=== PATIENT | female | born 1985 | race Caucasian/White ===

== ENCOUNTER 2018-11-01 09:07 | Inpatient (IN) | payer OTHER, SELFPAY ==
[2018-10-26 12:31] VITALS: BMI 35.9
[2018-11-01] VITALS (18 sets, daily range): BP systolic 121–147; BP diastolic 65–92; PULSE 85–117; RESP 10–18; TEMP 36.4–37.8; O2SAT 91–98; BMI 35.9
--- NOTE | 2018-11-01 | DI.RAD.S_ITS ---
PROCEDURE: XR CERVICAL SPINE 2V OR 3V INDICATIONS: C4-5-6-7 ACDF TECHNIQUE: 3 view(s) of the cervical spine were acquired. COMPARISON: None. FINDINGS: Bones: No fractures or dislocations to the T1 level. The lateral masses of C1 appear intact on the odontoid view. No suspicious bony lesions. Anterior discectomy and C4-C7 anterior fusion plate with anterior transverse vertebral body screws establish normal alignment, with interbody disc prosthesis present at the intervening 3 levels. Soft tissues: No prevertebral soft tissue swelling. IMPRESSION: Normal alignment established after C4-C7 anterior fusion plating and interbody disc prosthesis placement at C4-C5, C5-C6, and C6-C7. Dictated by: Durga Wagner M.D. on 11/01/2018 at 15:48 Approved by: Durga Wagner M.D. on 11/01/2018 at 15:50
[2018-11-01] MEDS: LACTATED RINGERS 1,000 ML 42 ML IV ×2 (09:44→13:54)
[2018-11-01] MEDS: ACETAMINOPHEN 325 MG TABLET 975 MG PO (09:46)
--- NOTE | 2018-11-01 10:54 | PM.PREOP ---
Pre-operative Note Interval Note History & Physical reviewed/Exam performed by Physician: Yes Changes to H&P: No
[2018-11-01] MEDS: CEFAZOLIN 2 GM/100 ML FROZ.PIGGY IV ×2 (11:16→18:37)
--- NOTE | 2018-11-01 11:48 | SUR.OPER ---
Supine, head on gel donut. Arms padded with gel pads, tucked at sides, towel roll under shoulders. Safety belt at thigh. Legs uncrossed.
--- NOTE | 2018-11-01 14:08 | P.OP_ITS ---
Operative Date/Time/Diagnoses Date of procedure: 11/01/18 Time of procedure: 12:06 Pre-op diagnosis: 1. C4-5, C5-6, C6-7 spinal stenosis. 2. C4-5, C5-6, C6-7 spondylosis with radiculopathy Post-op diagnosis: same Procedure & Clinicians Procedure: 1. C4-5 C5-6 C6-7 anterior cervical diskectomy and fusion 2. C4-5 C5-6 C6-7 anterior interbody cage placement 3. C4-5 C5-6 C6-7 anterior instrumentation with plate and screw placement in C4 -C5-C6 and C7 vertebrae 4. Utilization of microsurgical technique and operating microscope Same procedure as scheduled: Yes Indications: Patient has been having chronic neck pain and worsening cervical radiculopathy. Patient failed multiple conservative management with worsening pain weakness and numbness in her upper extremity. Patient has been having difficulty performing activity of daily living. After discussing risks benefits of treatment options, patient elected proceed with surgery. Surgeon: Jax Browning Lead Pressman [employer] Printing: Naya De Leon'Brien Click Yes if Unassisted: No Anesthesia Type: General Operative Notes Closure Type: primary Specimen(s): none sent Implants & Drains: Globus Extend plate, PEEK cages Applied: catheter Estimated Blood Loss (mL): 50 Blood products transfused: none Procedure in detail: Patient was seen in the preoperative area. Risks and benefits of the surgery was discussed with the patient. Operative consent was obtained and placed in the chart. Patient was then taken to the operative room. Prophylactic antibiotic was given less than 0.5 hr prior to skin incision. General anesthesia was administered. Patient was placed into a supine position on her radiolucent table. Bilateral shoulders were taped down to allow proper C-arm imaging. Anterior cervical area was prepped and draped in a sterile fashion. Time-out was performed at this time. Using lateral C-arm imaging, the level between C4 and C7 was identified and marked on patient's neck. A oblique incision from midline towards medial border of sternocleidomastoid muscle was made. The platysma muscle was incised in line with skin incision. Metzenbaum scissor was used to develop the plane between the medial border of sternocleidomastoid d and the strap muscles medially. The carotid sheath and its contents were identified and protected behind the hand- held retractor during the entire case. The plane between the carotid sheath and strap muscles was developed with Metzenbaum scissors. Dissection was made down to the level of the anterior cervical fascia. Longus colli muscle was incised on the anterior aspect of vertebral bodies bilaterally from C4-C7. Spinal needle was placed into the C4-5 disc space and confirmed with lateral C-arm imaging. Using microsurgical technique and operative microscope, anterior cervical diskectomy was performed at C4-5 C5-6 and C6-7 level. This was done by removing the disc material, removing the anterior and posterior osteophytes posterior longitudinal ligaments along with performing bilateral foraminotomies at all 3 levels. Patient was found to have severe central and foraminal stenosis at all 3 levels. Patient's stenosis was fully decompressed after decompression was completed. After the diskectomy was completed, 3 anterior interbody cages were obtained. The cages were packed with globus via cell bone grafting material. One cage each along with the bone grafting material was then packed into the interbody spaces from C4-C7 with one cage into each interbody level. After the cages were placed, the anterior cervical plate was stabilized to the C4-C7 vertebrae using 2 screws at each each level. Total 8 screws were placed. After confirming placement of the hardware with AP and lateral C-arm imaging, the screws were locked into the plate using the locking mechanism and torque limiting screwdriver. After the hardware was placed and confirmed with AP and lateral C-arm imaging, the wound was irrigated with sterile normal saline. The platysma muscle and the subcutaneous tissue was closed with 2-0 Vicryl. The skin was closed with 4- 0Monocryl and Steri-Strips. Patient tolerated the procedure well. Patient was transferred recovery room in stable condition. There were no complications. Complications: none Condition: stable Disposition: PACU Plan for aftercare: Admit to inpatient hospital
[2018-11-01] MEDS: HYDROMORPHONE 2 MG INJ 0.5 MG IV ×3 (14:29→15:21)
[2018-11-01] MEDS: LORazepam 2 MG/ML SYRINGE 0.25 MG IV ×2 (14:55→15:24)
--- NOTE | 2018-11-01 15:48 | SUR.PHASEI ---
Patient stable for transfer to acute care. transfered to room 218. Vital signs stable on arrival. O2 sat on Ra 93%. Dressing clean dry and intact with soft neck collar in place. 7-8/10 pressure discomfort to right neck. No complaints of nausea. tolerating ice chips. Mother in room at time of arrival. Verbal report given to Hortensia Narvaez RN.
--- NOTE | 2018-11-01 15:54 | PC.NURSE ---
Admit Pt arrived from PACU to 218, A/o x3, CMS+ answering all questions appropriately. Rates pain 7/10 with ant neck dressing CDI. Soft cervical collar in place. UPdated on POC and mother at bedside.
[2018-11-01] MEDS: hydrOXYzine pamoate 25 MG CAPSULE PO (16:25)
[2018-11-01] MEDS: HYDROCODONE/ACET 5/325 TABLET 2 TAB PO (16:50)
--- NOTE | 2018-11-01 17:30 | PT.IIE ---
Current Diagnoses Other spondylosis with myelopathy, cervical region (11/01/18) Spinal stenosis, cervical region (11/01/18) Surgery Performed Operation Date: 11/01/18 11:45 Actual Procedures p C4-5,C5-6,C6-7 ACDF w/ant instru(Not Applicable) - Jax Browning MD Surgical History (Last Updated 10/30/18 @ 16:33 by Kari Bueno, RN) History of bilateral carpal tunnel release (Acute) History of bilateral tubal ligation (Acute ~2007) History of section (Acute) History of excision of pilonidal cyst (Acute) Hx of thyroidectomy (Acute ~2015) Hx of tonsillectomy (Acute) Medical History (Last Updated 10/30/18 @ 16:46 by Kari Bueno, RN) Anxiety (Acute) Arthritis (Acute) Back pain (Acute) Bronchitis (Acute) Current every day smoker (Acute) Graves' disease (Acute) Hyperlipidemia (Acute) Hypertriglyceridemia (Acute) Insomnia (Acute) Left cervical lymphadenopathy (Acute) Migraines (Acute) Nicotine addiction (Acute) Numbness and tingling (Acute) Pneumonia (Acute ~2003) Psoriasis (Acute) RLS (restless legs syndrome) (Acute) Smokers' cough (Acute) Tachycardia (Acute) Type 2 diabetes mellitus (Acute ~2015) Physical Therapy Inpatient Evaluation/Re-Eval M1 PT/OT-IP Prior Functional Status Start: 11/01/18 17:30 Freq: NEEDED Status: Active Protocol: Document 11/01/18 17:30 EA (Rec: 11/01/18 17:42 EA [id number]) Medical Review Prior Functional Status Medical History Reviewed Yes Diet/Fluid Consistency Regular Communication Normal Mobility and Gait Indep with no assistive device Activities of Daily Living and IADL's 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 PT-IP Current Condition Start: 11/01/18 17:30 Freq: NEEDED Status: Active Protocol: Document 11/01/18 17:30 EA (Rec: 11/01/18 17:42 EA [id number]) Physical Therapy Current Condition Current Condition Evaluation Date 11/01/18 Treatment Diagnosis C4-C5, C5-C6, C6-C7 ACDF, ANT INTER CAGE PLACEMENT W/ PLATE AND SCREWS Precautions Cervical Spine Precautions Soft Collar for Comfort Soft Collar at all Times No Heavy Lifting Log Roll Weight Bearing Status Weight Bearing Status Full Weight Bearing M3 PT-IP Subjective Start: 11/01/18 17:30 Freq: NEEDED Status: Active Protocol: Document 11/01/18 17:30 EA (Rec: 11/01/18 17:42 EA [id number]) Subjective Physical Therapy Visit Type Type Initial Evaluation Visit Start Time 16:55 Visit Stop Time 17:30 Total Visit Minutes 35 Number of ENGINEERING CLERK Visits 0 Physical Therapy Visit Comments Patient Comments Patient would like to walk in the hallway. Patient Goals Indep in all transfers and mobility Therapy Pain Assessment Pain When Pain Assessed At Rest Pain Present Pain Present Pain Reported Location Bilateral Posterior Neck Intensity 5 M4 PT-IP Mobility and Gait Start: 11/01/18 17:30 Freq: NEEDED Status: Active Protocol: Document 11/01/18 17:30 EA (Rec: 11/01/18 17:42 EA [id number]) PT-Bed Mobility Assessment Rolling Type of Rolling Log Rolling Bilateral Level of Assist Standby Assistance Supine to Sit Supine to Sit Standby Assistance Sit to Supine Sit to Supine Standby Assistance Scooting Scooting to Edge of Bed Standby Assistance PT-Transfer Assessment Sit to and From Stand Sit to and from Stand Standby Assistance Equipment Transfer Assistive Device None Transfers Transfer Technique STEPPING Transfer Ability Level of Assist Standby Assistance Comments Mobility Comments PT standby assist in all transfers with no noted any signs of instability. Vitals were normal in supine to upright position. Pt understands safety and aware with all pre-cautions. Gait Assessment Gait Gait Assistance Required: Standby Assistance Distance (Feet) 40 Able to Maintain Weight Bearing Status Yes During Gait Assistive Devices Assistive Device None Gait Belt Gait Deviations General Gait Pattern Within Normal Limits Factors Limiting Gait Function Factors Limiting Gait Function Decreased Activity Tolerance Comments Gait Comments Patient ambulate with SBA using IV pole for support ~ 50 ft; no signs of instability during mobility noted. PT-Balance Assessment Sitting Balance and Reactions Static Sitting Balance Ability Normal Dynamic Sitting Balance Ability Normal Standing Balance and Reactions Static Standing Balance Ability Normal Dynamic Standing Balance Ability Normal M5 PT-IP Objective Assessments Start: 11/01/18 17:30 Freq: NEEDED Status: Active Protocol: Document 11/01/18 17:30 EA (Rec: 11/01/18 17:42 EA [id number]) Orientation Orientation/Cognition Level of Alertness Alert Orientation Name Age Birthday Date Year Day of Week Place Language Function Ability No Deficits Noted Safety Awareness Understands Safety Issues Memory Description No Deficits Noted Gross Range of Motion Upper Extremity ROM Assessment Within Functional Limits Impairments Both shoulders full shoulder ABD?flexion was no take due to pre-caution but with at least more than 75% of full ROM Lower Extremity ROM Assessment Within Functional Limits Strength Upper Extremity Strength Assessment Within Functional Limits Shoulder shoulder not tested due to pre -caution with at least 3/5 Lower Extremity Strength Assessment Within Functional Limits Coordination Assessment Gross Coordination Gross Coordination WNL Sensation Assessment Sensation Gross Sensation WNL Light Touch Intact Proprioception (Position) Intact Comments Sensation Comments No deficits noted to C4 -C7 dermatome M6 PT-IP Treatment Start: 11/01/18 17:30 Freq: NEEDED Status: Active Protocol: Document 11/01/18 17:30 EA (Rec: 11/01/18 17:42 EA [id number]) Physical Therapy Treatment Education Education Provided Precautions Weight Bearing Status Post-Op Packet Safety M7 PT-IP Assessment and Plan Start: 11/01/18 17:30 Freq: NEEDED Status: Active Protocol: Document 11/01/18 17:30 EA (Rec: 11/01/18 17:42 EA [id number]) PT Summary Assessment and Plan Potential Status of Condition at Evaluation Stable Summary Impairments Pain Bed Mobility Transfers Activity Tolerance Assessment Summary Patient exhibits decreased activity tolerance due to general body fatigue and pain. Patient has no signs of instability during mobility and transfers, however still requires assistance for safety. Patient may benefit with skilled to practice stairs prior to discharge tomorrow. Goals Bed Mobility Goal Independent Transfer Goal Independent Gait Goal Independent Gait Distance 100 ft Other Goals 1 stair with SBA Days to Meet Goals 1 Frequency of Treatment Frequency Of Treatment Once a Day Treatment Plan Physical Therapy Treatment Plan Bed Mobility Training Transfer Training Gait Training Therapeutic Exercise Post Op Education Discharge Planning Other Recommendations and Next Treatment 1 step to practice and review Focus cervical surgery pre-cautions. Recommendations To Nursing Amount of Assist Needed Standby Assistance Discharge Recommendations PT Discharge Recommendations Home with Assistance
[2018-11-01] MEDS: SODIUM CHLORIDE 0.9% 1,000 ML 100 ML IV (17:57)
[2018-11-01] MEDS: AMOXICILLIN 250 MG CAPSULE 500 MG PO ×2 (18:35→21:21)
[2018-11-01] MEDS: OXYCODONE IR 5 MG TABLET 10 MG PO (19:28)
[2018-11-01] MEDS: DOCUSATE 100 MG CAPSULE PO (19:29)
[2018-11-01] MEDS: ATORVASTATIN 20 MG TABLET PO (19:30)
[2018-11-01] MEDS: ONDANSETRON 4 MG/2 ML INJ IV (19:33)
[2018-11-01] MEDS: METFORMIN XR 500 MG TABLET PO (19:34)
[2018-11-01] MEDS: LEVOTHYROXINE 75 MCG TABLET PO (19:35)
[2018-11-01] MEDS: LEVOTHYROXINE 100 MCG TABLET PO (19:35)
[2018-11-01] MEDS: NICOTINE 14 PATCH 14 MG TOP (21:21)
[2018-11-01] MEDS: diazePAM 5 MG TABLET PO (21:26)
[2018-11-02] MEDS: OXYCODONE IR 5 MG TABLET 10 MG PO ×3 (03:15→10:46)
[2018-11-02] MEDS: CEFAZOLIN 2 GM/100 ML FROZ.PIGGY IV (03:37)
[2018-11-02 03:48] VITALS: BP 126/72; PULSE 84; RESP 16; TEMP 36.4; O2SAT 96
[2018-11-02] MEDS: diazePAM 5 MG TABLET PO (04:58)
[2018-11-02 05:48] LABS: Hematocrit 35.2 % (36-46); Hemoglobin 11.9 g/dL (12.0-16.0)
--- NOTE | 2018-11-02 07:28 | PM.DS.1 ---
History of Present Illness Date Patient Seen: 11/02/18 Time Patient Seen: 07:40 Chief complaint: cervical lumbar [id number] Narrative: Patient seen bedside s/p C4-5 C5-6 C6-7 anterior cervical diskectomy and fusion with Dr. Browning. Patient is POD #1. She is doing well, her pain is well controlled and she would like to go home today. Denies any numbness/tingling, SOB, and CP. Discharge Providers Date of admission: 11/01/18 09:07 Consults: 11/01/18 15:53 Consult to Occupational Therapy Evaluate & Treat Comment: Physician Instructions: Evaluate and treat Consult to Physical Therapy Evaluate & Treat Comment: Physician Instructions: Evaluate and Treat Discharge provider: Luba Aege PA-C Discharge Date: 11/02/18 Summary Discharge Diagnosis: 1. C4-5, C5-6, C6-7 spinal stenosis. 2. C4-5, C5-6, C6-7 spondylosis with radiculopathy Hospital Course: Patient was admitted to the hospital s/p C4-5, C6-7, C6-[address] Browning on 11/01/18. Patient tolerated the procedure well with no major complications. She was transferred to the acute care floor and placed on the standard cervical fusion pathway and protocol. She was seen by PT and recommended for discharge home. She was stable and ready for discharge on 11/02/18. Status at Discharge Cognitive/behavioral status at discharge: Alert and oriented x4. Functional status at discharge: independent ambulation Overall status at discharge: patient is progressing back to baseline Time Spent with Patient Less than 30 minutes Exam Vital Signs (past 8 hours): - 11/02/18 03:48 Temperature 97.6 F Pulse Rate 84 Respiratory Rate 16 Blood Pressure 126/72 Pulse Oximetry 96 Oxygen Delivery Method Room Air Oxygen Flow Rate 0 Narrative Exam Narrative: WDWN NAD A&Ox3. Anterior neck dressing has a small spot of old drainage, but is otherwise CDI. No hematoma, mild swelling, no erythema. No focal deficits noted, FROM of BUE. BUE pink and well perfused. Objective Labs Result Diagrams: 11/02/18 05:31 Labs: Laboratory Results - last 24 hr 11/02/18 05:31 Hgb 11.9 L Hct 35.2 L Discharge Plan Discharge Plan Patient Disposition: Home Discharge Med Rec/Prescriptions Prescriptions: New docusate sodium 100 mg Capsule 100 mg PO BID Qty: 0 RF: 0 hydroxyzine pamoate 25 mg Capsule 25 mg PO Q4HR PRN (Reason: Nausea And Vomiting) Qty: 50 RF: 1 hydrocodone-acetaminophen 10-325 mg tablet 1 tab PO Q4-6H PRN (Reason: pain) Qty: 40 RF: 0 Continue levothyroxine 175 mcg Tablet 175 mcg PO BEDTIME RF: 0 atorvastatin 20 mg Tablet 20 mg PO BEDTIME RF: 0 diphenhydramine HCl [Benadryl] 25 mg Capsule 25 mg PO BEDTIME PRN (Reason: Sleep) RF: 0 rbvunwb-wjucstmpwaeob-lhvyjgqd [Excedrin Migraine] 250-250-65 mg Tablet 2 tab PO Q6H PRN (Reason: Migraine Headache) RF: 0 cyclobenzaprine 10 mg Tablet 5 - 10 mg PO BID PRN (Reason: Muscle Spasms) RF: 0 amoxicillin 500 mg Capsule 500 mg PO TID RF: 0 calcium carbonate 500 mg calcium (1,250 mg) Tablet,Chewable 4 tab PO QID RF: 0 metformin 500 mg Tablet Extended Release 24 Hr 500 mg PO BID RF: 0 trolamine salicylate 10 % Cream 1 applic TOPICAL PRN PRN (Reason: Unlisted) RF: 0 methyl salicylate-menthol [Salonpas] 10-3 % Adhesive Patch,Medicated 1 patch Topical PRN PRN (Reason: pain) RF: 0 Discontinued hydrocodone-acetaminophen 5-325 mg Tablet 1 tab PO Q12H PRN (Reason: pain) RF: 0 naproxen sodium 220 mg Capsule 440 mg PO BID PRN (Reason: pain) RF: 0 aspirin 325 mg Tablet 650 mg PO DAILY PRN (Reason: Fever) RF: 0 acetaminophen 500 mg Tablet 1,000 mg PO Q5H PRN (Reason: Pain) RF: 0 diphenhydramine HCl 25 mg Tablet 100 mg PO BEDTIME PRN (Reason: Itching) RF: 0 Follow up/Referrals: Jax Browning MD [Physician] - (Follow up in 2 weeks at your previously scheduled appointment.) Provider Discharge Instructions Diet: Diet as Tolerated Activity: Weightbearing as tolerated, wear soft collar. Limit neck movement. No driving while on narcotics Skin/Wound/Dressing Care Report to your healthcare provider any signs of infection, such as:: chills, fever, night sweats, increased pain, unusual drainage and unusual redness Dressing: Keep dressing clean, dry, and intact. May shower with dressing in place. Visit Report/Discharge Packet Visit Report Forms: Stroke Signs & Symptoms Discharge Data Attending Provider: Jax Browning Admit Date/Time: 11/01/18 09:07 Quality VTE Deep Vein Thrombosis/Pulmonary Embolism Present on Admission: No
[2018-11-02] MEDS: AMOXICILLIN 250 MG CAPSULE 500 MG PO (07:56)
[2018-11-02 08:00] VITALS: BP 124/82; PULSE 92; O2SAT 97
[2018-11-02] MEDS: DOCUSATE 100 MG CAPSULE PO (08:04)
[2018-11-02] MEDS: METFORMIN XR 500 MG TABLET PO (08:04)
[2018-11-02 08:30] VITALS: RESP 18; TEMP 36.5
--- NOTE | 2018-11-02 09:25 | PT.IPTN ---
Current Diagnoses Other spondylosis with myelopathy, cervical region (11/01/18) Spinal stenosis, cervical region (11/01/18) Surgery Performed Operation Date: 11/01/18 11:45 Actual Procedures p C4-5,C5-6,C6-7 ACDF w/ant instru(Not Applicable) - Jax Browning MD Physical Therapy Treatment Note M2 PT-IP Current Condition Start: 11/01/18 17:30 Freq: NEEDED Status: Active Protocol: Document 11/01/18 17:30 EA (Rec: 11/01/18 17:42 EA [id number]) Physical Therapy Current Condition Current Condition Evaluation Date 11/01/18 Treatment Diagnosis C4-C5, C5-C6, C6-C7 ACDF, ANT INTER CAGE PLACEMENT W/ PLATE AND SCREWS Precautions Cervical Spine Precautions Soft Collar for Comfort Soft Collar at all Times No Heavy Lifting Log Roll Weight Bearing Status Weight Bearing Status Full Weight Bearing M3 PT-IP Subjective Start: 11/01/18 17:30 Freq: NEEDED Status: Active Protocol: Document 11/02/18 09:25 GGAlvarez (Rec: 11/02/18 10:18 GGD [id number]) Subjective Physical Therapy Visit Type Type Treatment Note Visit Start Time 09:10 Visit Stop Time 09:25 Total Visit Minutes 15 Number of FORECLOSURE FIELD INSPECTOR Visits 1 Physical Therapy Visit Comments Patient Comments Pt states she having trouble with getting out of bed. Therapy Pain Assessment Pain When Pain Assessed At Rest Pain Present Pain Present Pain Reported Location Bilateral Posterior Neck Intensity 4 M4 PT-IP Mobility and Gait Start: 11/01/18 17:30 Freq: NEEDED Status: Active Protocol: Document 11/02/18 09:25 GGAlvarez (Rec: 11/02/18 10:18 GGD [id number]) PT-Bed Mobility Assessment Rolling Type of Rolling Roll to Left Level of Assist Standby Assistance Supine to Sit Supine to Sit Standby Assistance Sit to Supine Sit to Supine Standby Assistance Scooting Scooting to Edge of Bed Standby Assistance PT-Transfer Assessment Sit to and From Stand Sit to and from Stand Standby Assistance Equipment Transfer Assistive Device None Transfer Ability Level of Assist Standby Assistance Comments Mobility Comments Pt needed min cues for bed mobility. Gait Assessment Gait Gait Assistance Required: Standby Assistance Distance (Feet) 50 Assistive Devices Assistive Device None Gait Belt Stair Climbing Assessment Evaluation Level of Assist On Stairs Standby Assistance Devices Stair Climbing Assistive Devices None Technique/Endurance Stair Climbing Direction Ascend and Descend Stair Climbing Technique Step to Step Number of Steps Climbed 1 Query Text: Stair Climbing Set # Repetitions (reps) 1 M5 PT-IP Objective Assessments Start: 11/01/18 17:30 Freq: NEEDED Status: Active Protocol: Document 11/01/18 17:30 EA (Rec: 11/01/18 17:42 EA [id number]) Orientation Orientation/Cognition Level of Alertness Alert Orientation Name Age Birthday Date Year Day of Week Place Language Function Ability No Deficits Noted Safety Awareness Understands Safety Issues Memory Description No Deficits Noted Gross Range of Motion Upper Extremity ROM Assessment Within Functional Limits Impairments Both shoulders full shoulder ABD?flexion was no take due to pre-caution but with at least more than 75% of full ROM Lower Extremity ROM Assessment Within Functional Limits Strength Upper Extremity Strength Assessment Within Functional Limits Shoulder shoulder not tested due to pre -caution with at least 3/5 Lower Extremity Strength Assessment Within Functional Limits Coordination Assessment Gross Coordination Gross Coordination WNL Sensation Assessment Sensation Gross Sensation WNL Light Touch Intact Proprioception (Position) Intact Comments Sensation Comments No deficits noted to C4 -C7 dermatome M6 PT-IP Treatment Start: 11/01/18 17:30 Freq: NEEDED Status: Active Protocol: Document 11/01/18 17:30 EA (Rec: 11/01/18 17:42 EA [id number]) Physical Therapy Treatment Education Education Provided Precautions Weight Bearing Status Post-Op Packet Safety M7 PT-IP Assessment and Plan Start: 11/01/18 17:30 Freq: NEEDED Status: Active Protocol: Document 11/02/18 09:25 GGD (Rec: 11/02/18 10:18 GGD [id number]) PT Summary Assessment and Plan Summary Assessment Summary Pt improved tolerance with bed mobility after cues. She was safe and stable with gait and transfers. She safe for home D /C when medically stable. Frequency of Treatment Frequency Of Treatment Once a Day Treatment Plan Other Recommendations and Next Treatment 1 step to practice and review Focus cervical surgery pre-cautions. Recommendations To Nursing Amount of Assist Needed Standby Assistance Discharge Recommendations PT Discharge Recommendations Home with Assistance
--- NOTE | 2018-11-02 09:50 | OT.IP.EVAL ---
Current Diagnoses Other spondylosis with myelopathy, cervical region (11/01/18) Spinal stenosis, cervical region (11/01/18) Surgery Performed Operation Date: 11/01/18 11:45 Actual Procedures p C4-5,C5-6,C6-7 ACDF w/ant instru(Not Applicable) - Jax Browning MD Past Medical History (Last Updated 10/30/18 @ 16:46 by Kari Bueno, RN) Anxiety (Acute) Arthritis (Acute) Back pain (Acute) Bronchitis (Acute) Current every day smoker (Acute) Graves' disease (Acute) Hyperlipidemia (Acute) Hypertriglyceridemia (Acute) Insomnia (Acute) Left cervical lymphadenopathy (Acute) Migraines (Acute) Nicotine addiction (Acute) Numbness and tingling (Acute) Pneumonia (Acute ~2003) Psoriasis (Acute) RLS (restless legs syndrome) (Acute) Smokers' cough (Acute) Tachycardia (Acute) Type 2 diabetes mellitus (Acute ~2015) Surgical History (Last Updated 10/30/18 @ 16:33 by Kari Bueno, RN) History of bilateral carpal tunnel release (Acute) History of bilateral tubal ligation (Acute ~2007) History of section (Acute) History of excision of pilonidal cyst (Acute) Hx of thyroidectomy (Acute ~2015) Hx of tonsillectomy (Acute) Occupational Therapy Inpatient Evaluation/Re-Eval M1 PT/OT-IP Prior Functional Status Start: 11/01/18 17:30 Freq: NEEDED Status: Active Protocol: Document 11/02/18 09:50 PJM (Rec: 11/02/18 11:40 PJM [id number]) Medical Review Prior Functional Status Medical History Reviewed Yes Diet/Fluid Consistency Regular Communication Normal Mobility and Gait Indep with no assistive device Activities of Daily Living and IADL's Pt independent with all self care, IADLS, drives. 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 Social History Household Members significant other children Living Arrangements House Number of Floors (Floors) One Floor Number of Stairs To Enter/Railing? 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 who works days and children ages 14 and 10 yrs. Pt has friend who will stay with her during day PRN while S.O. at work. M2 OT-IP Current Condition Start: 11/02/18 11:27 Freq: Status: Active Protocol: Document 11/02/18 09:50 PJM (Rec: 11/02/18 11:40 PJM [id number]) Occupational Therapy Current Condition Current Condition Evaluation Date 11/02/18 Treatment Diagnosis decreased self are s/P C4-7 anterior diskectomy-fusion Post Operative Precautions Cervical Spine Precautions Soft Collar for Comfort No Heavy Lifting Log Roll M3 OT- IP Subjective and Pain Start: 11/02/18 11:27 Freq: Status: Active Protocol: Document 11/02/18 09:50 PJM (Rec: 11/02/18 11:40 PJM [id number]) OT- Subjective Occupational Therapy Visit Type Type Initial Evaluation Visit Start Time 09:25 Visit Stop Time 09:50 Total Visit Minutes 25 Occupational Therapy Visit Comments Patient/Caregiver Goals to go home and have no pain in R arm, return to work when able OT Pain Assessment Pain When Pain Assessed After Treatment Pain Present Pain Present Pain Reported Location Bilateral Posterior Neck Intensity 5 Scale Used Numeric (1 - 10) Description Aching Acute Pain Behaviors Guarding Management Techniques Distraction Re-positioning Timing of Activity with Medications M4 OT- IP ADL's Start: 11/02/18 11:27 Freq: Status: Active Protocol: Document 11/02/18 09:50 PJM (Rec: 11/02/18 11:40 PJM [id number]) OT [id number] General Evaluation Diet Level for Self-Feeding soft foods, liquids Self-Feeding Ability Independent Comments OT Self-Feeding Comments Pt verbalizes understanding of soft diet for comfort due to sore throat. OT ADL-Grooming General Evaluation Grooming Ability Independent Areas Needing Assistance Combing/Brushing Hair Face Washing Comments OT Grooming Comments standing at sink after education re: C spine precautions and body mechanics OT ADL-Oral Care General Eval Oral Care Ability Independent Areas of Assistance Brushing Teeth Devices Oral Care Devices Toothbrush Comments Oral Care Comments standing at sink after education re: C spine precautions and body mechanics OT ADL-Dressing General Eval Upper Body Dressing Ability Independent Lower Body Dressing Ability Independent Comments OT Dressing Comments after education re: C spine precautions and body mechanics OT ADL-Toileting General Evaluation Toileting Ability Independent Areas Needing Assistance Manage Clothing Perform Perineal Hygiene OT ADL-Bathing Devices Bathing Equipment Hand Held Shower Sprayer Comments OT Bathing Comments Pt declined to shower here, provided re: C spine precautions and body mechanics and methods to keep incision/ bandage dry. Pt states S.O. will provide assist with hair washing with hand held shower hose. Pt declines shampoo cap. M5 OT- IP IADL's Start: 11/02/18 11:27 Freq: Status: Active Protocol: Document 11/02/18 09:50 PJM (Rec: 11/02/18 11:40 PJM [id number]) OT-Instrumental Activities of Daily Living Deficits IADL Deficits Identified Deficits Home Safety Awareness Awareness of Need for Assistance at Home Good Awareness Ability to Problem Solve Emergency Able to Problem Solve Situations Medication Management Medication Management No Deficits Identified Money Management Money Management No Deficits Identified Meal Preparation Meal Preparation Caregiver Provides Assist Meal Preparation Comments S.O. and friend to assist until pt able Financial Aid Financial Aid Caregiver Provides Assist Financial Aid Comments S.O. to assist until pt able Driving Driving Caregiver Provides Assist Driving Comments S.O. and friend to assist until pt able M6 OT- IP Functional Cognition Start: 11/02/18 11:27 Freq: Status: Active Protocol: Document 11/02/18 09:50 PJM (Rec: 11/02/18 11:40 PJM [id number]) Cognitive Factors Limiting Selfcare Function Cognitive Ability Level of Alertness Alert Patient Orientation Name Age Birthday Month Date Year Day of Week Place Situation Attention Span Ability Capable of Focused Attention Capable of Sustained Attention Ability to Follow Commands Able to Follow One Step Commands Able to Follow Multi-Step Commands Memory Description No Deficits Noted Safety Awareness No Deficits Noted Problem Solving Ability No deficits Noted Cognitive Comments Cognitive Assessment Comments Functional cognition appears WNL OT- Vision and Hearing OT- Hearing Assessment OT- Hearing Assessment WFL OT- Vision Assessment Visual Acuity WFL M7 OT- IP Mobility and Balance Start: 11/02/18 11:27 Freq: Status: Active Protocol: Document 11/02/18 09:50 PJM (Rec: 11/02/18 11:40 PJM [id number]) OT- Bed Mobility Assessment Rolling Type of Rolling Roll to Left Level of Assistance Independent Supine to Sit Supine to Sit Assist Independent Scooting Scooting to Edge of Bed Independent OT-Transfer Assessment Sit to and From Stand Sit to and from Stand Independent Transfers Transfer Ability Independent Technique Transfer Destination Bed Chair Toilet Transfer Technique Stand Step Pivot Devices Transfer Assistive Devices None OT- Gait Assessment Gait Gait Assistance Required: Independent Comments Gait Ability Comments Pt reports she ahs been up ambulating in sandhu without a device. OT- Balance Assessment Sitting Balance and Reactions Static Sitting Balance Ability Good Dynamic Sitting Balance Ability Good Standing Balance and Reactions Static Standing Balance Ability Good Dynamic Standing Balance Ability Good M8 OT- IP Objective Assessments Start: 11/02/18 11:27 Freq: Status: Active Protocol: Document 11/02/18 09:50 PJM (Rec: 11/02/18 11:40 PJM [id number]) OT Gross Range of Motion Upper Extremity Range of Motion Assessment Within Functional Limits ROM Impairments B shoulders NT >90 degrees due to recent C spine surgery. Pt educated re: gentle shoulder rolls and scapular retraction to improve posture. OT Strength Upper Extremity Strength Assessment Within Functional Limits Hand Vocational Training Director Strength Hand Dominance Right OT- Coordination Assessment Comments Coordination Comments BUE WFL OT-Muscle Tone Assessment Muscle Tone WNL Yes OT Sensation Assessment Comments Summary Comments Pt reports she no longer has radiating pain down R arm. Sensation WNL BUE per pt. Edema Edema Absent M9 OT- IP Assessment and Plan Start: 11/02/18 11:27 Freq: Status: Active Protocol: Document 11/02/18 09:50 PJM (Rec: 11/02/18 11:40 PJM [id number]) OT Summary Assessment and Plan Potential Rehabilitation Potential Excellent Analytic Complexity at Evaluation Low Summary OT Impairments Pain Progress Towards Goals Safe For Discharge Assessment Summary Low complexity OT assessment and all OT education completed in one session re: C-spine precautions, body mechanics and adapted ADLS. Pt plans to d/c home today with assist from working spouse and friend . No further OT services needed. Frequency of Treatment Frequency Of Treatment Discharge Discharge Recommendations OT Discharge Recommendations Home with Assistance Home Equipment Needs none
--- NOTE | 2018-11-02 10:07 | CM.IDA ---
Discharge Planning/Care Management CM Discharge Assessment Start: 11/02/18 10:03 Alcidesq: Status: Active Protocol: Document 11/02/18 10:03 GARY (Rec: 11/02/18 10:07 GARY [id number]) Discharge Planning Assessment Assigned Registered Nurse Renal SHAUN Carmona DPOA/Assigned Designee Name Lorie (mother) Contact Information Lorie: [phone] Advance Directives? No: Declines further information History Provided By Patient Parents Medical Record Prior Living Arrangements House Household Members significant other children Type of transporation used prior to Drives own vehicle admit Comment Works as a [employer] Independent with ADL's Yes Is patient alert and oriented? Yes Caregiver for Another Yes: Children Comment Home Barriers to Discharge No Comment DC home today. PT has cleared pt for return home w/family support and strongly advised to continue to use of soft collar. No barriers to safe return home w/close outpt f/u. Discharge Plan Home Transportation Arrangement Family Referrals Initiated None needed Review Status In Process
--- NOTE | 2018-11-02 10:33 | PC.NURSE ---
Pt is independent in room. Given percolone for pain control which is working well. IV removed and pt is ready for dc. Paperwork and scripts given to pt.
== END 2018-11-02 11:03 | disposition home or self-care (01) | DRG 473 ==
PROVIDERS: Admitting Provider Orthopaedic Surgery Orthopaedic Surgery of the Spine; Visit Provider Orthopaedic Surgery Orthopaedic Surgery of the Spine
PROC: 0RG20A0 Fusion of 2 or more Cervical Vertebral Joints with Interbody Fusion Device, Anterior Approach, Anterior Column, Open Approach (ICD-10-PCS; principal; 2018-11-01 11:45)
DX: M48.02 Spinal stenosis, cervical region (principal); M54.12 Radiculopathy, cervical region; M50.20 Other cervical disc displacement, unspecified cervical region; G43.819 Other migraine, intractable, without status migrainosus; E03.9 Hypothyroidism, unspecified; E78.5 Hyperlipidemia, unspecified; E11.9 Type 2 diabetes mellitus without complications; Z79.84 Long term (current) use of oral hypoglycemic drugs; F17.210 Nicotine dependence, cigarettes, uncomplicated; E66.9 Obesity, unspecified; Z68.35 Body mass index [BMI] 35.0-35.9, adult
CPT/HCPCS: 36415; 72040; 76000; 82962; 85014; 85018; 97161; 97165; 97530; 97535; C1776; J0690; J1100; J1170; J2060; J2250; J2405; J2704; J3010